=== PATIENT | female | born 1950 | race Caucasian/White ===

== ENCOUNTER 2019-11-12 04:03 | Observation (INO) | payer OTHER ==
[~2019-11-12] VITALS: Ht 162.6 cm; Wt 87.3 kg
--- NOTE | 2019-11-12 04:33 | NUR ---
THIS IS A 69 YO FEMALE COMING IN FOR EPIGASTRIC AND STERNAL CHEST PAIN THAT RADIATES UP THROAT, CURRENT COMPLAINT IS "IT FEELS LIKE MY THROAT IS BURNING, I CAN'T STAND THE PAIN WHEN I COUGH, IT GOES STRAIGHT TO MY BACK". PATIENT STATES "WHEN IT STARTED I FELT NAUSEOUS AND I THREW UP THREE TIMES." DENIES DIZZINESS. BILATERAL PEDAL PULSES WEAK, RADIAL PULSES EQUAL AND STRONG. BP TAKEN ON LEFT AND RIGHT WITH LESS THAN 20 POINT DIFFERENCE. PAIN IS CONSTANT, STATES "IT FEELS LIKE IT'S BURNING", RATED 8/10, STARTED AT 0330. PATIENT DENIES ANY MEDICAL HX, HAS 2+ BILATERAL LOWER LEG EDEMA, PATIENT STATES THAT IS HER NORM. A&OX4, VSS AT THIS TIME. CALL LIGHT IN REACH, FAMILY IN ROOM. ALL MONITORING IN PLACE, NSR ON MONITOR
[2019-11-12] MEDS ORDERED: LEVO50TA5 PO (04:39)
[2019-11-12] MEDS ORDERED: [UNRECOGNIZED DRUG - OTHER] (04:42)
[2019-11-12] MEDS ORDERED: DEXL60CA2 PO (04:42)
[2019-11-12] MEDS ORDERED: ESCI10TA PO (04:44)
[2019-11-12] MEDS ORDERED: CHOL100011 PO (04:45)
[2019-11-12] MEDS ORDERED: SEMA0.25 INJ (04:45)
[2019-11-12] MEDS ORDERED: ONDANSETRON 2MG/ML, 2ML ONE (04:46)
[2019-11-12] MEDS ORDERED: OMEG-14 PO (04:46)
[2019-11-12] MEDS ORDERED: MAALOX/HYOSCYAMINE/LIDOCAINE 45 ML BTL ONE (04:47)
--- NOTE | 2019-11-12 04:58 | NUR ---
PIV PLACED, PATIENT MEDICATED PER EMAR, TOLERATED WELL
[2019-11-12] MEDS ORDERED: ONDANSETRON 2MG/ML, 2ML IVPush ONE (05:00)
[2019-11-12] MEDS ORDERED: MAALOX/HYOSCYAMINE/LIDOCAINE 45 ML BTL PO ONE (05:00)
[2019-11-12] MEDS ORDERED: SODIUM CHLORIDE FLUSH 10ML SYR IVF ONE (05:00)
[2019-11-12 05:25] LABS: BASOPHILS # (AUTO) 0.03 x10^3/uL (0-0.1); BASOPHILS % (AUTO) 0 % (0-1); EOSINOPHILS # (AUTO) 0.21 x10^3/uL (0-0.4); EOSINOPHILS % (AUTO) 2 % (1-7); LYMPHOCYTES # (AUTO) 1.99 x10^3/uL (1-3.4); LYMPHOCYTES % (AUTO) 23 % (22-44); MD NO; MEAN CORPUSCULAR HEMOGLOBIN 30.6 pg (27.0-34.8); MEAN CORPUSCULAR HGB CONC 33.2 g/dL (32.4-35.8); MEAN CORPUSCULAR VOLUME 92.1 fL (80-100); MEAN PLATELET VOLUME 9.1 fL (7.4-10.4); MONOCYTES # (AUTO) 0.47 x10^3/uL (0.2-0.8); MONOCYTES % (AUTO) 5 % (2-9); NEUTROPHILS # (AUTO) 6.06 x10^3/uL (1.8-6.8); NEUTROPHILS % (AUTO) 69 % (42-75); PLATELET COUNT 271 x10^3/uL (130-400); RED BLOOD COUNT 4.23 x10^6/uL (3.82-5.3); RED CELL DISTRIBUTION WIDTH 14.6 % (9.6-15.2)
[2019-11-12 05:30] LABS: INTERNATIONAL NORMALIZED RATIO 1.01 (0.93-1.1); PROTHROMBIN TIME 10.7 Seconds (9.6-11.5)
[2019-11-12 05:33] LABS: ALANINE AMINOTRANSFERASE 18 U/L (12-78); ALBUMIN 3.2 g/dL (3.4-5.0); ANION GAP 5 mmol/L (5-15); CALCIUM 8.9 mg/dL (8.5-10.1); CHLORIDE 107 mmol/L (98-107); CREATININE 0.94 mg/dL (0.55-1.02)
[2019-11-12 05:38] LABS: ALKALINE PHOSPHATASE 80 U/L (45-117); BILIRUBIN,TOTAL 0.2 mg/dL (0.2-1.0); TOTAL PROTEIN 7.3 g/dL (6.4-8.2); TROPONIN I < 0.015 ng/mL (0.000-0.045)
--- NOTE | 2019-11-12 05:48 | NUR ---
PATIENT AMBULATORY WITH STEADY GAIT TO RESTROOM
--- NOTE | 2019-11-12 06:15 | NUR ---
PATIENT DESAT TO 82% WHILE SLEEPING, PLACED ON 1L NC AND WOKEN UP, BACK UP TO 97%. GAGE RYDER TO ROOM
--- NOTE | 2019-11-12 06:53 | NUR ---
BEDSIDE REPORT GIVEN TO ENRICO MILES. PLAN OF CARE DISCUSSED. OFFICE COORDINATOR LEAVING ROOM AT THIS TIME
--- NOTE | 2019-11-12 07:45 | NUR ---
PT TO CT
[2019-11-12] MEDS ORDERED: OMNIPAQUE 350 MG/ML, 100ML BOTTLE ONE (08:04)
--- NOTE | 2019-11-12 08:45 | NUR ---
PT RESTING IN BED, CALL LIGHT IN REACH
[2019-11-12] MEDS ORDERED: PANTOPRAZOLE 40 MG IV IVPush ONE (09:30)
[2019-11-12] MEDS ORDERED: SODIUM CHLORIDE FLUSH 10ML SYR IVF PRN (09:30)
[2019-11-12] MEDS ORDERED: ACETAMINOPHEN 325 MG TABLET PO PRN (09:30)
--- NOTE | 2019-11-12 09:51 | NUR ---
REPORT CALLED TO [facility]
[2019-11-12 10:47] VITALS: BP 136/78
[2019-11-12] MEDS ORDERED: LEVOTHYROXINE 50 MCG TABLET ONE (11:15)
[2019-11-12] MEDS: ENOXAPARIN 40 MG/0.4 ML SQ SCH (11:22)
[2019-11-12 12:10] VITALS: BP 126/75
[2019-11-12 13:17] LABS: TROPONIN I < 0.015 ng/mL (0.000-0.045)
[2019-11-12 18:59] VITALS: BP 108/70
[2019-11-12 19:35] LABS: TROPONIN I < 0.015 ng/mL (0.000-0.045)
[2019-11-13 02:42] VITALS: BP 135/76
[2019-11-13 05:11] LABS: BASOPHILS # (AUTO) 0.06 x10^3/uL (0-0.1); BASOPHILS % (AUTO) 1 % (0-1); EOSINOPHILS # (AUTO) 0.11 x10^3/uL (0-0.4); EOSINOPHILS % (AUTO) 1 % (1-7); LYMPHOCYTES # (AUTO) 2.23 x10^3/uL (1-3.4); LYMPHOCYTES % (AUTO) 25 % (22-44); MD NO; MEAN CORPUSCULAR HEMOGLOBIN 30.6 pg (27.0-34.8); MEAN CORPUSCULAR VOLUME 92.8 fL (80-100); MEAN PLATELET VOLUME 8.9 fL (7.4-10.4); MONOCYTES # (AUTO) 0.58 x10^3/uL (0.2-0.8); MONOCYTES % (AUTO) 7 % (2-9); NEUTROPHILS # (AUTO) 5.83 x10^3/uL (1.8-6.8); NEUTROPHILS % (AUTO) 66 % (42-75); PLATELET COUNT 264 x10^3/uL (130-400); RED BLOOD COUNT 4.08 x10^6/uL (3.82-5.3); RED CELL DISTRIBUTION WIDTH 15.2 % (9.6-15.2)
[2019-11-13 05:21] LABS: ANION GAP 6 mmol/L (5-15); CALCIUM 8.6 mg/dL (8.5-10.1); CHLORIDE 106 mmol/L (98-107); CREATININE 0.83 mg/dL (0.55-1.02)
[2019-11-13 06:29] VITALS: BP 114/71
[2019-11-13] MEDS: ENOXAPARIN 40 MG/0.4 ML SQ SCH (08:26)
[2019-11-13] MEDS ORDERED: LISINOPRIL 10 MG TABLET PO SCH (09:00)
[2019-11-13] MEDS ORDERED: PANTOPRAZOLE 40 MG IV IVPush SCH (09:00)
[2019-11-13] MEDS ORDERED: ESCITALOPRAM 10MG TABLET PO SCH ×2 (09:00→21:00)
[2019-11-13] MEDS ORDERED: LEVOTHYROXINE 50 MCG TABLET PO SCH ×2 (09:00→11:30)
[2019-11-13] MEDS ORDERED: DILTIAZEM 30 MG TABLET PO SCH (09:30)
[2019-11-13] MEDS ORDERED: DILT30TA27 PO (09:51)
== END 2019-11-13 11:38 | disposition home or self-care (01) ==
LOC: ED 05:10 → INTOOBSV 09:26 → EDIP 09:26 → 5SO 10:44 → DCLOUNGE 11-13 11:30
PROVIDERS: ADMIT Internal Medicine Infectious Disease; ATTEND Hospitalist
DX: K21.9 Gastro-esophageal reflux disease without esophagitis (principal); K44.9 Diaphragmatic hernia without obstruction or gangrene; E03.9 Hypothyroidism, unspecified; E11.9 Type 2 diabetes mellitus without complications; K22.8 Other specified diseases of esophagus; Z79.899 Other long term (current) drug therapy
CPT/HCPCS: 36415; 71045; 71275; 74240; 76700; 80048; 80053; 83690; 83880; 84484; 85025; 85379; 85610; 93005; 96372; 96374; 96375; 96376; 99284; C9113; G0378; J1650; J2405; Q9967